=== PATIENT | female | born 1995 | race Caucasian/White ===

== ENCOUNTER 2016-08-24 12:49 | Emergency (ER) | payer BC ==
[~2016-08-24] VITALS: Ht 175.2 cm; Wt 81.6 kg
[~2016-08-24 12:49] MED LIST: CLARITIN10 MG PO; IBU800 MG PO; MOTRIN 600 MG E4 TAB PO; ZITHROMAX Z PA250 MG PO
[2016-08-24 12:56] VITALS: BP 131/76
== END 2016-08-24 14:57 | disposition home or self-care (01) ==
LOC: ED 12:49
DX: S90.02XA Contusion of left ankle, initial encounter (principal); S90.32XA Contusion of left foot, initial encounter; W10.9XXA Fall (on) (from) unspecified stairs and steps, initial encounter; Y93.89 Activity, other specified; Y92.9 Unspecified place or not applicable; Y99.9 Unspecified external cause status

== ENCOUNTER 2017-04-03 12:42 | Emergency (ER) | payer BC ==
[~2017-04-03] VITALS: Ht 175.2 cm; Wt 81.6 kg
[2017-04-03 13:12] VITALS: BP 118/86
[2017-04-03] MEDS ORDERED: DELTASONE20 M1 PO (15:41)
== END 2017-04-03 15:39 | disposition home or self-care (01) ==
LOC: ED 12:42
DX: J40 Bronchitis, not specified as acute or chronic (principal)